=== PATIENT | female | born 1980 | race Caucasian/White ===

== ENCOUNTER 2017-01-09 20:15 | Emergency (ER) | payer OTHER ==
[2017-01-09 20:41] VITALS: BP 141/89; PULSE 88; TEMP 98.2; BMI 39.0
--- NOTE | 2017-01-09 22:55 | PDOC ---
History of Present Illness - History of Present Illness Initial Comments: 01/09/17 23:52 Patient is a 36 year old female with significant medical hx of irregular menses who is presenting to the ED with heavy vaginal bleeding since today. The patient states that two weeks ago having light vaginal bleeding for three days that resolved. Today starting at 11 AM, the patient began having heavy vaginal bleeding, saturating three pads during the first two hours. The patient then took a shower and stayed in the bath for an hour because she was bleeding so heavily. After getting out, she had some scant blood on one more pad. The patient complains of dizziness, lightheadedness and feeling shaky. She denies any nausea, vomiting, diarrhea, abdominal pain or cramping. <Jennifer Robins - Last Filed: 01/09/17 23:52> <Gloria Del Rio - Last Filed: 01/10/17 01:24> - General Chief Complaint: Vaginal Bleeding Stated Complaint: VAGINAL BLEEDING Time Seen by Provider: 01/09/17 22:04 Past History <Jennifer Robins - Last Filed: 01/09/17 23:52> - Past Medical History Other medical history: denies - Immunization History Immunization Up to Date: Yes - Psycho/Social/Smoking Cessation Hx Suicidal Ideation: No Smoking History: Never smoked Information on smoking cessation initiated: No Hx Alcohol Use: No Drug/Substance Use Hx: No <Gloria Del Rio - Last Filed: 01/10/17 01:24> - Past Medical History Allergies/Adverse Reactions: Allergies Allergy/AdvReac Type Severity Reaction Status Date / Time ibuprofen Allergy Severe Hives Verified 01/09/17 22:29 Home Medications: Ambulatory Orders NK [No Known Home Medication] 01/09/17 Review of Systems - Review of Systems Comments:: 01/09/17 23:58 CONSTITUTIONAL: Present: shakiness Absent: fever, chills, diaphoresis, generalized weakness, malaise, loss of appetite HEENT: Absent: rhinorrhea, nasal congestion, throat pain, throat swelling, difficulty swallowing, mouth swelling, ear pain, eye pain, visual changes CARDIOVASCULAR: Present: lightheadedness Absent: chest pain, syncope, palpitations, irregular heart rate, peripheral edema RESPIRATORY: Absent: cough, shortness of breath, dyspnea with exertion, orthopnea, wheezing, stridor, hemoptysis GASTROINTESTINAL: Absent: abdominal pain, abdominal distension, nausea, vomiting, diarrhea, constipation, melena, hematochezia GENITOURINARY: Present: vaginal bleeding Absent: dysuria, frequency, urgency, hesitancy, hematuria, flank pain, genital pain MUSCULOSKELETAL: Absent: myalgia, arthralgia, joint swelling SKIN: Absent: rash, itching, pallor HEMATOLOGIC/IMMUNOLOGIC: Absent: easy bleeding, easy bruising, lymphadenopathy, frequent infections ENDOCRINE: Absent: unexplained weight gain, unexplained weight loss, heat intolerance, cold intolerance NEUROLOGIC: Present: dizziness Absent: headache, focal weakness or paresthesia, unsteady gait, seizure, mental status changes, bladder or bowel incontinence. PSYCHIATRIC: Absent: anxiety, depression, suicidal or homicidal ideation, hallucinations <Jennifer Robins - Last Filed: 01/09/17 23:52> *Physical Exam - Vital Signs Last Vital Signs Temp Pulse Resp BP Pulse Ox 98.2 F 88 20 141/89 100 01/09/17 20:37 01/09/17 20:37 01/09/17 20:37 01/09/17 20:37 01/09/17 21:37 - Physical Exam Comments: 01/10/17 00:03 GENERAL: Well developed, well nourished. Awake and alert. No acute distress. HEENT: Normocephalic, atraumatic. PERRLA, EOMI. No conjunctival pallor. Sclera are non- icteric. Moist mucous membranes. Oropharynx is clear. NECK: Supple. Full ROM. No JVD. Carotid pulses 2+ and symmetric, without bruits. No thyromegaly. No lymphadenopathy. CARDIOVASCULAR: Regular rate and rhythm. No murmurs, rubs, or gallops. Distal pulses are 2+ and symmetric. PULMONARY: No evidence of respiratory distress. Lungs clear to auscultation bilaterally. No wheezing, rales or rhonchi. ABDOMINAL: Soft. Non-tender. Non-distended. No rebound or guarding. No organomegaly. Normoactive bowel sounds. MUSCULOSKELETAL: Normal range of motion at all joints. No bony deformities or tenderness. No CVA tenderness. EXTREMITIES: No cyanosis. No clubbing. No edema. No calf tenderness. SKIN: Warm and dry. Normal capillary refill. No rashes. No jaundice. NEUROLOGICAL: Alert, awake, appropriate. Cranial nerves 2-12 intact. Normal speech. Gait is normal without ataxia. PSYCHIATRIC: Cooperative. Good eye contact. Appropriate mood and affect. <Jennifer Robins - Last Filed: 01/09/17 23:52> - Vital Signs Last Vital Signs Temp Pulse Resp BP Pulse Ox 98.2 F 88 20 141/89 100 01/09/17 20:37 01/09/17 20:37 01/09/17 20:37 01/09/17 20:37 01/09/17 21:37 <Gloria Del Rio - Last Filed: 01/10/17 01:24> ED Treatment Course - LABORATORY CBC & Chemistry Diagram: 01/09/17 23:17 01/09/17 23:17 <Jennifer Robins - Last Filed: 01/09/17 23:52> - LABORATORY CBC & Chemistry Diagram: 01/09/17 23:17 01/09/17 23:17 <Gloria Del Rio - Last Filed: 01/10/17 01:24> Medical Decision Making - Medical Decision Making 01/10/17 01:11 36 yo female who has not seen her manager green since childbirth 10 years ago. She has a child w cerebral palsy -she has a history of irregular menstrual cycle -discussed lab results w pt . Her hbg=7.2, hct 22.8 -currently does not want blood transfusion plan- will start Iron tablets along with stool softener.Will see Customer Experience Manager for further evaluation for dysfunctional vaginal bleeding 01/10/17 01:13 <Gloria Del Rio - Last Filed: 01/10/17 01:24> *DC/Admit/Observation/Transfer - Attestations Scribe Attestion: 01/10/17 00:04 Documentation prepared by Jennifer Robins, acting as medical staffing coordinator for Gloria Del Rio MD. <Jennifer Robins - Last Filed: 01/09/17 23:52> <Gloria Del Rio - Last Filed: 01/10/17 01:24> Diagnosis at time of Disposition: Irregular menstrual bleeding Anemia Qualifiers: Anemia type: unspecified type Qualified Code(s): D64.9 - Anemia, unspecified - Discharge Dispostion Disposition: HOME Condition at time of disposition: Stable - Referrals Referrals: Eli Dumont MD [Staff Physician] - Bernarda Carlos MD [Staff Physician] - Jeffery Sharma MD [Staff Physician] - - Patient Instructions Printed Discharge Instructions: DI for Vaginal Bleeding, DI for Abnormal Uterine Bleeding Additional Instructions: 1-please buy iron tablets at your grocery store or pharmacy 2-Iron tablets can cause constipation so take a stool softener like colace or metamucil OR if you develop constipation you can use miralax 3-Please follow up wth a two way radio installer 4-return for worsening symptoms
[2017-01-09 23:55] LABS: BASOPHIL 0.5 % (0-2.0); EOSINOPHIL 1.9 % (0-4.5); MCH 23.4 pg (25.7-33.7); MCHC 31.4 g/dl (32.0-36.0); MEAN CELL VOLUME 74.7 fl (80-96); MEAN PLT VOLUME 8.4 fl (7.5-11.1); NEUTROPHILS 68.1 % (42.8-82.8); PLATELET COUNT 313 K/MM3 (134-434); RDW 15.5 % (11.6-15.6); WHITE BLOOD COUNT 8.3 K/mm3 (4.0-10.0)
[2017-01-10 00:26] LABS: ALBUMIN 3.6 g/dl (3.4-5.0); ALK PHOS 96 U/L (45-117); ANION GAP 11 (8-16); BILIRUBIN,TOTAL 0.2 mg/dL (0.2-1.0); CALCIUM 8.9 mg/dL (8.5-10.1); CO2 24 mmol/L (21-32); CREATININE 0.6 mg/dL (0.55-1.02); GLUCOSE,RANDOM 111 mg/dL (74-106); SGOT/AST 9 U/L (15-37); SGPT/ALT 25 U/L (12-78); TOT PROT 7.3 g/dl (6.4-8.2)
== END 2017-01-10 01:26 | disposition home or self-care (01) ==
LOC: JER 20:15
DX: N92.6 Irregular menstruation, unspecified (principal); D64.9 Anemia, unspecified
CPT/HCPCS: 36415; 80053; 84703; 85025; 86850; 86900; 86901; 99282-25